=== PATIENT | male | born 1990 | race Two or more races ===

== ENCOUNTER 2020-08-14 23:29 | Inpatient (IN) | payer MEDICAID, OTHER ==
[~2020-08-14] VITALS: Ht 175.3 cm; Wt 103.4 kg
[2020-08-15 02:23] LABS: Calcium 8.7 mg/dL (8.5-10.1); Chloride 101 mmol/L (98-107); Potassium 3.7 mmol/L (3.5-5.1); Sodium 138 mmol/L (136-145)
[2020-08-15 02:26] LABS: Alanine Aminotransferase 37 U/L (16-61); Albumin 3.9 g/dL (3.4-5.0); Anion Gap 8 (5-15); Aspartate Aminotransferase 18 U/L (15-37); BUN/Creatinine Ratio 9.4; Blood Alcohol < 3.0 mg/dL (0-5); Blood Urea Nitrogen 10 mg/dL (7-18); Carbon Dioxide 29 mmol/L (21-32); GFR African American 104 mL/min; GFR Non-African American 86 mL/min; Glucose 129 mg/dL (74-106)
[2020-08-15 02:29] LABS: Alkaline Phosphatase 63 U/L (45-117); Bilirubin, Total 0.7 mg/dL (0.2-1.0); Total Protein 7.7 g/dL (6.4-8.2)
[2020-08-15 02:39] LABS: Salicylate < 1.7 mg/dL (2.8-20.0)
[2020-08-15 02:41] LABS: Acetaminophen 83.4 ug/mL (10-30)
[2020-08-15] MEDS ORDERED: ACETYLCYSTEINE ORAL for CIN 20%(200MG/ML) 4ML PO ONE ×2 (08:45→10:45)
[2020-08-15 09:49] LABS: Albumin 3.8 g/dL (3.4-5.0); BUN/Creatinine Ratio 10.5; Calcium 8.8 mg/dL (8.5-10.1); Potassium 3.2 mmol/L (3.5-5.1)
[2020-08-15 09:53] LABS: Bilirubin, Total 0.8 mg/dL (0.2-1.0); Total Protein 7.4 g/dL (6.4-8.2)
[2020-08-15] MEDS ORDERED: LORazepam 0.5 MG TAB PO PRN (11:15)
[2020-08-15] MEDS ORDERED: ONDANSETRON HCL 4 MG/2 ML VIAL IV PRN (11:15)
[2020-08-15] MEDS ORDERED: DOCUSATE SOD 100 MG CAP PO PRN (11:15)
[2020-08-15 12:58] LABS: Urine Bacteria NONE SEEN /hpf (None Seen); Urine Blood Negative /uL (Negative); Urine Mucus FEW (None Seen); Urine Specific Gravity 1.018 (1.001-1.035); Urine WBC 30 /hpf (0 - 3)
[2020-08-15 13:16] LABS: Alcohol, Urine < 3.0 mg/dL (0-10); Amphetamine Screen, Urine POSITIVE (NEGATIVE); Barbiturate Scree,Urine NEGATIVE (NEGATIVE); Benzodiazephine Screen, Urine NEGATIVE (NEGATIVE); Cannabinoid Screen, Urine POSITIVE (NEGATIVE); Cocaine Screen, Urine NEGATIVE (NEGATIVE); Opiate Scree,Urine NEGATIVE (NEGATIVE); Phencyclidine Screen, Urine NEGATIVE (NEGATIVE)
[2020-08-15] MEDS: SODIUM CHLORIDE 0.9% 1,000 ML IV SCH (21:45)
[2020-08-15 21:56] VITALS: BP 139/74
[2020-08-15 22:38] VITALS: BP 148/75
[2020-08-16] VITALS (7 sets, daily range): BP systolic 117–141; BP diastolic 62–91
[2020-08-16] MEDS ORDERED: ACETYLCYSTEINE ORAL for CIN 20%(200MG/ML) 4ML PO ONE
[2020-08-16] MEDS ORDERED: ACETYLCYSTEINE PO FOR APAP TOX 200 MG/ML ML ONE ×3 (01:26→04:41)
[2020-08-16] MEDS ORDERED: ACETYLCYSTEINE 20%(200MG/ML) SOL 4ML ONE ×3 (01:28→04:45)
[2020-08-16] MEDS ORDERED: ACETYLCYSTEINE ORAL for CIN 20%(200MG/ML) 4ML PO SCH ×2 (02:00→06:30)
[2020-08-16] MEDS: SODIUM CHLORIDE 0.9% 1,000 ML IV SCH ×2 (03:55→20:00)
[2020-08-16 06:06] LABS: Basophils # (auto) 0.1 10 ^3/uL (0-0.2); Basophils % (auto) 0.9 % (0.0-2.0); Eosinophils # (auto) 0.2 10 ^3/uL (0-0.8); Eosinophils % (auto) 2.1 % (0.0-7.0); Hematocrit 47.3 % (41.0-53.0); Hemoglobin 15.6 g/dL (13.5-17.5); Lymphocytes # (auto) 2.2 10 ^3/uL (0.4-5.4); Lymphocytes % (auto) 28.2 % (10.0-50.0); Mean Corpuscular Hemoglobin 28.2 pg (28.0-32.0); Mean Corpuscular Hgb Conc. 33.1 g/dL (32.0-36.0); Mean Corpuscular Volume 85.2 fL (80.0-100.0); Monocytes # (auto) 0.5 10 ^3/uL (0-1.3); Monocytes % (auto) 7.1 % (0.0-12.0); Neutrophils # (auto) 4.7 10 ^3/uL (1.6-8.6); Neutrophils % (auto) 61.7 % (37.0-80.0); Nucleated Red Blood Cells % 0.1 %; Platelet Count (auto) 252 10^3/uL (140-450); Red Blood Cells 5.55 10^6/uL (4.5-5.90); Red Cell Distribution Width 13.3 % (11.8-14.3); White Blood Cell 7.7 10^3/uL (4.4-10.8)
[2020-08-16 06:41] LABS: Potassium 3.1 mmol/L (3.5-5.1)
[2020-08-16 07:13] LABS: BUN/Creatinine Ratio 10.5; Calcium 8.6 mg/dL (8.5-10.1)
[2020-08-16] MEDS: ACETYLCYSTEINE 20%(200MG/ML) SOLN 30ML PO SCH ×4 (10:00→22:00)
[2020-08-16] MEDS: ACETYLCYSTEINE 20%(200MG/ML) SOL 4ML PO SCH ×2 (10:00→14:00)
[2020-08-16] MEDS ORDERED: POTASSIUM CHLORIDE 8 MEQ TAB PO ONE (12:00)
[2020-08-16] MEDS ORDERED: MORPHINE SULF INJ 2 MG/ML SYRINGE 1ML IV PRN (12:15)
[2020-08-16 13:58] LABS: Amylase 44 U/L (25-115); Lipase 157 U/L (73-393)
[2020-08-16] MEDS: PANTOPRAZOLE 40 MG TAB PO SCH ×2 (15:30→21:20)
[2020-08-16] MEDS: SUCRALFATE 1 GM/10 ML ORAL SUSP PO SCH ×3 (15:30→21:20)
[2020-08-17 05:00] VITALS: BP 121/65
[2020-08-17 06:21] LABS: Basophils # (auto) 0.1 10 ^3/uL (0-0.2); Eosinophils # (auto) 0.2 10 ^3/uL (0-0.8); Eosinophils % (auto) 2.4 % (0.0-7.0); Hemoglobin 14.5 g/dL (13.5-17.5); Lymphocytes # (auto) 2.1 10 ^3/uL (0.4-5.4); Lymphocytes % (auto) 32.7 % (10.0-50.0); Mean Corpuscular Hemoglobin 27.9 pg (28.0-32.0); Mean Corpuscular Hgb Conc. 32.9 g/dL (32.0-36.0); Mean Corpuscular Volume 84.7 fL (80.0-100.0); Monocytes # (auto) 0.8 10 ^3/uL (0-1.3); Neutrophils # (auto) 3.3 10 ^3/uL (1.6-8.6); Neutrophils % (auto) 51.9 % (37.0-80.0); Nucleated Red Blood Cells % 0.1 %; Platelet Count (auto) 239 10^3/uL (140-450); Red Blood Cells 5.19 10^6/uL (4.5-5.90); Red Cell Distribution Width 13.1 % (11.8-14.3); White Blood Cell 6.3 10^3/uL (4.4-10.8)
[2020-08-17] MEDS: SUCRALFATE 1 GM/10 ML ORAL SUSP PO SCH ×4 (06:45→22:30)
[2020-08-17 06:55] LABS: Calcium 8.2 mg/dL (8.5-10.1)
[2020-08-17 07:06] LABS: BUN/Creatinine Ratio 8.5; Bilirubin, Total 0.5 mg/dL (0.2-1.0)
[2020-08-17 08:23] LABS: INR 1.08 (0.9-1.15); Partial Thromboplastin Time 26.1 sec (23.0-31.2)
[2020-08-17 08:47] VITALS: BP 129/69
[2020-08-17] MEDS: PANTOPRAZOLE 40 MG TAB PO SCH ×2 (10:29→22:31)
[2020-08-17 13:15] VITALS: BP 134/75
[2020-08-17] MEDS: SODIUM CHLORIDE 0.9% 1,000 ML IV SCH (13:29)
[2020-08-17] MEDS: ACETYLCYSTEINE ORAL for CIN 20%(200MG/ML) 4ML PO SCH ×3 (15:08→20:01)
[2020-08-17] MEDS ORDERED: ACETYLCYSTEINE 20%(200MG/ML) SOLN 30ML PO SCH (22:00)
[2020-08-18] MEDS: ACETYLCYSTEINE 20%(200MG/ML) SOLN 30ML PO SCH ×3 (00:26→08:00)
[2020-08-18 05:00] VITALS: BP 114/65
[2020-08-18] MEDS: SODIUM CHLORIDE 0.9% 1,000 ML IV SCH (05:55)
[2020-08-18] MEDS: SUCRALFATE 1 GM/10 ML ORAL SUSP PO SCH ×4 (06:50→22:08)
[2020-08-18] MEDS: PANTOPRAZOLE 40 MG TAB PO SCH ×2 (08:46→22:08)
[2020-08-18 09:00] VITALS: BP 135/78
[2020-08-18 11:22] LABS: Bilirubin, Direct 0.2 mg/dL (0-0.2)
[2020-08-18 11:25] LABS: Bilirubin, Total 0.4 mg/dL (0.2-1.0); Total Protein 6.1 g/dL (6.4-8.2)
[2020-08-18] MEDS ORDERED: FOLIC ACID 1 MG, MULTIPLE VITAMIN 10 ML, MAGNESIUM SULF SDV 50% 8 MEQ, THIAMINE INJ 100... INJ ONE ×5 (11:30)
[2020-08-18] MEDS ORDERED: POTASSIUM CHL 20 Meq TABLET PO ONE (11:45)
[2020-08-18] MEDS ORDERED: ACETYLCYSTEINE 200MG/ML IV SOL 10,000 MG in D5W 5% 1,000 ML IV SCH (11:52)
[2020-08-18 12:52] VITALS: BP 125/76
[2020-08-18 21:45] VITALS: BP 150/91
[2020-08-19 04:36] VITALS: BP 127/83
[2020-08-19 06:01] LABS: Albumin 2.9 g/dL (3.4-5.0)
[2020-08-19 06:06] LABS: Bilirubin, Direct 0.2 mg/dL (0-0.2); Bilirubin, Total 0.4 mg/dL (0.2-1.0); Total Protein 6.1 g/dL (6.4-8.2)
[2020-08-19] MEDS: SUCRALFATE 1 GM/10 ML ORAL SUSP PO SCH ×2 (06:22→11:52)
[2020-08-19 09:00] VITALS: BP 139/95
[2020-08-19] MEDS: PANTOPRAZOLE 40 MG TAB PO SCH (09:54)
[2020-08-19 12:44] VITALS: BP 139/95
[2020-08-19 13:00] VITALS: BP 130/91
== END 2020-08-19 16:00 | disposition home or self-care (01) | DRG 817 ==
LOC: EDBD 23:29 → ER 23:31 → TELE 23:32 → TELE-WESTW 08-15 19:59
PROVIDERS: ADMIT Hospitalist; ATTEND Internal Medicine
DX: T39.1X2A Poisoning by 4-Aminophenol derivatives, intentional self-harm, initial encounter (principal); T14.91XA Suicide attempt, initial encounter; T39.312A Poisoning by propionic acid derivatives, intentional self-harm, initial encounter; E87.6 Hypokalemia; E66.9 Obesity, unspecified; K29.00 Acute gastritis without bleeding; Y92.89 Other specified places as the place of occurrence of the external cause; Z68.33 Body mass index [BMI] 33.0-33.9, adult
CPT/HCPCS: 36415; 71250; 74176; 76705; 80048; 80053; 80061; 80076; 80307; 80320; 80329; 81001; 82150; 83690; 84443; 85025; 85610; 85730; 93005; G0378